=== PATIENT | male | born 1975 | race Caucasian/White ===

== ENCOUNTER 2025-08-01 00:01 | Emergency (ER) | payer OTHER ==
[~2025-08-01] VITALS: Ht 187.9 cm; Wt 68.0 kg
[2025-08-01] MEDS ORDERED: METHOCARBAMOL 500 MG TAB PO ONE (00:15)
[2025-08-01] MEDS ORDERED: PREDNISONE20 M1 PO (00:21)
[2025-08-01] MEDS ORDERED: METHOCARBAMOL500 M1 PO (00:21)
== END 2025-08-01 00:36 | disposition home or self-care (01) ==
LOC: ED 00:01
DX: M79.2 Neuralgia and neuritis, unspecified (principal); M79.601 Pain in right arm

== ENCOUNTER 2025-09-13 14:41 | Inpatient (IN) | payer OTHER ==
[~2025-09-13] VITALS: Ht 167.6 cm; Wt 67.1 kg
[2025-09-13] VITALS (20 sets, daily range): BP systolic 84–158; BP diastolic 35–115
[~2025-09-13 14:41] MED LIST: METHOCARBAMOL500 M1 PO; PREDNISONE20 M1 PO
[2025-09-13] MEDS ORDERED: DEXTROSE 50% 25 GM/50 ML SYR IV ONE (15:04)
[2025-09-13 15:11] LABS: BILIRUBIN Negative (Negative); BLOOD 2+ (Negative); CLARITY Clear (Clear); COLOR Yellow (Yellow); KETONE 2+ (Negative); LEUKO ESTERASE Negative (Negative); NITRITE Negative (Negative); PH 5.0 (4.5-8.0); SPECIFIC GRAVITY 1.025 (1.001-1.030); UROBILINOGEN 0.2 E.U./dl (0.0-1.0)
[2025-09-13 15:18] LABS: URINE AMPHETAMINES Positive (1000ng/ml); URINE BARBITURATES Negative (200ng/ml); URINE BENZODIAZEPINES Negative (200ng/ml); URINE CANNABINOIDS (THC) Negative (50ng/ml); URINE COCAINE Negative (300ng/ml); URINE METHADONE Negative (300ng/ml); URINE OPIATES Negative (300ng/ml); URINE PHENCYCLIDINE Negative (25ng/ml)
[2025-09-13 15:31] LABS: MEAN CELL VOLUME 103.5 fl (80.0-94.0); MEAN CORPUSCULAR HGB 28.9 pg (27.0-31.0); MEAN PLATELET VOLUME 10.3 fl (9.6-12.3); NUCLEATED RED BLOOD CELL 0.0 % (0.0-0.0); NUCLEATED RED BLOOD CELL 0.0 10*3/uL (0.0-0.0); PLATELET COUNT AUTOMATED 341 10*3/uL (130-400); RED CELL DISTRI WIDTH 12.6 % (0-14.5)
[2025-09-13 15:32] LABS: MANUAL DIFF REFLEX YES
[2025-09-13 15:40] LABS: ACT PARTIAL THROMBO TIME 47.5 SECONDS (20.0-32.1)
[2025-09-13 15:55] LABS: BACTERIA 1+
[2025-09-13 15:57] LABS: PLATELET SUFFICIENCY NORMAL (NORMAL)
[2025-09-13 16:00] LABS: VACUOLATION OF NEUTROPHILS SLIGHT
[2025-09-13 16:01] LABS: BUN 74 mg/dl (9-23); SGPT/ALT 24 U/L (5-49)
[2025-09-13] MEDS ORDERED: INSULIN REGULAR IN 0.9 % NACL 100 ML IV SCH ×2 (16:10→17:40)
[2025-09-13] MEDS ORDERED: SODIUM CHLORIDE 0.9% 1,000 ML IV ONE ×6 (16:10→19:20)
[2025-09-13] MEDS ORDERED: ACETAMINOPHEN 325 MG TAB PO PRN (17:15)
[2025-09-13] MEDS ORDERED: BISACODYL 10 MG SUPP R PRN (17:15)
[2025-09-13] MEDS ORDERED: Ondansetron Hydrochloride 4 MG/2 ML VIAL IV PRN (17:15)
[2025-09-13] MEDS ORDERED: ACETAMINOPHEN 650 MG SUPP R PRN (17:15)
[2025-09-13] MEDS ORDERED: BISACODYL 5 MG TAB PO PRN (17:15)
[2025-09-13] MEDS ORDERED: Acetaminophen/Hydrocodone 5 MG/325 MG TABLET PO PRN (17:15)
[2025-09-13] MEDS ORDERED: POTASSIUM CHLORIDE 20 MEQ TAB PO PRN (17:40)
[2025-09-13] MEDS ORDERED: POTASSIUM CHLORIDE 20 MEQ/100 ML BAG IV PRN (17:40)
[2025-09-13] MEDS ORDERED: Piperacillin Sodium/Tazobact 2.25 GM in SODIUM CHLORIDE 0.9% 50 ML IV SCH (18:00)
[2025-09-13 18:03] LABS: ABG BASE EXCESS -32.8 mmol/L (-2.0-3.0); ABG O2 SATURATION 99.8 % (94.0-98.0)
[2025-09-13 18:05] LABS: ARTERIAL BLOOD GAS PH 6.734 (7.350-7.450); ARTERIAL BLOOD GAS PO2 569.2 mmHg (83.0-108.0)
[2025-09-13] MEDS ORDERED: SODIUM BICARBONATE 50 MEQ/50 ML VIAL IV ONE ×3 (18:05→22:38)
[2025-09-13 18:42] LABS: BUN 66 mg/dl (9-23)
[2025-09-13] MEDS ORDERED: SODIUM POLYSTYRENE SULFONATE 15 GM/60 ML BOT R ONE (18:50)
[2025-09-13] MEDS ORDERED: Albuterol Sulf/Ipratropium 3 ML VIAL NEB ONE (18:50)
[2025-09-13] MEDS ORDERED: ETOMIDATE 20 MG/10 ML VIAL IV ONE (18:54)
[2025-09-13] MEDS ORDERED: ROCURONIUM BROMIDE 50 MG/5 ML SYRINGE IV ONE (18:54)
[2025-09-13] MEDS ORDERED: SODIUM POLYSTYRENE SULFONATE 15 GM/60 ML BOT NG ONE (19:05)
[2025-09-13] MEDS ORDERED: NOREPINEPHRINE BITARTRATE/D5W 250 ML IV SCH (20:25)
[2025-09-13] MEDS ORDERED: INSULIN REGULAR IN 0.9 % NACL 100 ML IV ONE (20:51)
[2025-09-13 21:16] LABS: ABG O2 SATURATION 98.4 % (94.0-98.0); ARTERIAL BLOOD GAS PO2 168.7 mmHg (83.0-108.0)
[2025-09-13 21:20] LABS: ABG BASE EXCESS -25.6 mmol/L (-2.0-3.0); ARTERIAL BLOOD GAS PH 6.833 (7.350-7.450)
[2025-09-13] MEDS ORDERED: HEPARIN SODIUM 5,000 UNIT/ML VIAL SC SCH (22:00)
[2025-09-13] MEDS ORDERED: SODIUM CHLORIDE 0.45% 1,000 ML IV SCH (22:25)
[2025-09-13] MEDS ORDERED: fentaNYL CITRATE 1,000 MCG in SODIUM CHLORIDE 0.9% 230 ML IV SCH (22:35)
[2025-09-13 23:06] LABS: BUN 67.0 mg/dl (9-23)
[2025-09-14] VITALS (52 sets, daily range): BP systolic 93–132; BP diastolic 44–66
[2025-09-14] MEDS ORDERED: fentaNYL CITRATE 1,000 MCG/20 ML VIAL IV ONE
[2025-09-14 02:57] LABS: BUN 63.0 mg/dl (9-23)
[2025-09-14] MEDS ORDERED: POTASSIUM CHLORIDE 20 MEQ TAB PO PRN (03:50)
[2025-09-14] MEDS ORDERED: POTASSIUM CHLORIDE 20 MEQ/100 ML BAG IV PRN (03:50)
[2025-09-14 06:33] LABS: BUN 59.0 mg/dl (9-23); LDL CHOLESTEROL 62.0 mg/dL (9-159); SGPT/ALT 24.0 U/L (5-49)
[2025-09-14 06:42] LABS: MEAN CORPUSCULAR HGB 28.6 pg (27.0-31.0); MEAN PLATELET VOLUME 9.4 fl (9.6-12.3); NUCLEATED RED BLOOD CELL 0.0 % (0.0-0.0); NUCLEATED RED BLOOD CELL 0.0 10*3/uL (0.0-0.0); RED CELL DISTRI WIDTH 12.3 % (0-14.5); VITAMIN D, 25-HYDROXY 19.8 ng/mL (30-100)
[2025-09-14 07:10] LABS: ACT PARTIAL THROMBO TIME 28.8 SECONDS (20.0-32.1)
[2025-09-14 07:28] LABS: MEAN CELL VOLUME 80.0 fl (80.0-94.0)
[2025-09-14 07:29] LABS: MANUAL DIFF REFLEX YES; PLATELET COUNT AUTOMATED 193 10*3/uL (130-400)
[2025-09-14 07:31] LABS: BASOPHILS 1 % (0-1)
[2025-09-14 07:32] LABS: PLATELET SUFFICIENCY NORMAL (NORMAL)
[2025-09-14 08:14] LABS: ABG BASE EXCESS -2.9 mmol/L (-2.0-3.0); ABG O2 SATURATION 98.1 % (94.0-98.0); ARTERIAL BLOOD GAS PH 7.369 (7.350-7.450); ARTERIAL BLOOD GAS PO2 110.4 mmHg (83.0-108.0)
[2025-09-14 10:39] LABS: BUN 56.0 mg/dl (9-23)
[2025-09-14] MEDS ORDERED: SODIUM PHOSPHATE 15 MMOL in SODIUM CHLORIDE 0.9% 250 ML IV ONE (10:40)
[2025-09-14] MEDS ORDERED: POTASSIUM CHLORIDE IN WATER 100 ML IV SCH ×2 (13:00→16:00)
[2025-09-14] MEDS ORDERED: DEXTROSE 5% SALINE 0.45% 1,000 ML IV SCH (14:20)
[2025-09-14 14:21] LABS: BUN 48.0 mg/dl (9-23)
[2025-09-14 18:43] LABS: BUN 41.0 mg/dl (9-23)
[2025-09-14] MEDS ORDERED: Insulin Glargine, Recombinan 1 UNIT/0.01 ML SC SCH (22:10)
[2025-09-14] MEDS ORDERED: DEXTROSE 50% 25 GM/50 ML VIAL IV PRN (22:15)
[2025-09-14] MEDS ORDERED: Lactated Ringer's Solution 1,000 ML IV SCH (22:20)
[2025-09-14 23:07] LABS: BUN 34.0 mg/dl (9-23)
[2025-09-15] VITALS: BP 104/46
[2025-09-15 04:00] VITALS: BP 101/47
[2025-09-15 05:02] LABS: BUN 29.0 mg/dl (9-23)
[2025-09-15] MEDS ORDERED: Insulin Glargine, Recombinan 1 UNIT/0.01 ML SC ONE (05:10)
[2025-09-15 06:06] LABS: BASO # 0.0 10*3/uL (0.0-0.1); BASO % 0.0 % (0.0-1.0); EOS # 0.0 10*3/uL (0.0-0.4); EOS % 0.1 % (1.0-4.0); MEAN CELL VOLUME 80.9 fl (80.0-94.0); MEAN CORPUSCULAR HGB 28.5 pg (27.0-31.0); MEAN PLATELET VOLUME 9.7 fl (9.6-12.3); MONO # 0.7 10*3/uL (0.1-1.0); MONO % 7.2 % (3.0-9.0); NEUT # 8.5 10*3/uL (2.3-7.9); NEUT % 85.4 % (47.0-73.0); NUCLEATED RED BLOOD CELL 0.0 % (0.0-0.0); NUCLEATED RED BLOOD CELL 0.0 10*3/uL (0.0-0.0); PLATELET COUNT AUTOMATED 149 10*3/uL (130-400); RED CELL DISTRI WIDTH 13.6 % (0-14.5)
[2025-09-15] MEDS ORDERED: INSULIN LISPRO 1 UNIT/0.01 ML SQ SCH ×2 (07:30)
[2025-09-15 08:00] VITALS: BP 104/56
[2025-09-15 11:12] LABS: BUN 25 mg/dl (9-23)
[2025-09-15 12:00] VITALS: BP 95/44
[2025-09-15] MEDS ORDERED: INSULIN REGULAR IN 0.9 % NACL 100 ML IV SCH (12:25)
[2025-09-15] MEDS ORDERED: SODIUM PHOSPHATE 15 MMOL in SODIUM CHLORIDE 0.9% 250 ML IV ONE (12:35)
[2025-09-15 15:45] LABS: BUN 20 mg/dl (9-23)
[2025-09-15 16:00] VITALS: BP 137/77
[2025-09-15 19:43] LABS: BUN 17 mg/dl (9-23)
[2025-09-15 20:00] VITALS: BP 132/69
[2025-09-15] MEDS ORDERED: DEXTROSE 50% 25 GM/50 ML VIAL IV PRN (23:05)
[2025-09-15] MEDS ORDERED: Insulin Glargine, Recombinan 1 UNIT/0.01 ML SC SCH (23:05)
[2025-09-16] VITALS: BP 129/67
[2025-09-16 04:00] VITALS: BP 124/73
[2025-09-16 05:24] LABS: BUN 12 mg/dl (9-23)
[2025-09-16 06:09] LABS: BASO # 0.0 10*3/uL (0.0-0.1); BASO % 0.1 % (0.0-1.0); EOS # 0.0 10*3/uL (0.0-0.4); EOS % 0.4 % (1.0-4.0); MEAN CELL VOLUME 81.7 fl (80.0-94.0); MEAN CORPUSCULAR HGB 28.3 pg (27.0-31.0); MEAN PLATELET VOLUME 9.6 fl (9.6-12.3); MONO # 0.5 10*3/uL (0.1-1.0); MONO % 6.8 % (3.0-9.0); NEUT # 5.4 10*3/uL (2.3-7.9); NEUT % 75.8 % (47.0-73.0); NUCLEATED RED BLOOD CELL 0.0 % (0.0-0.0); NUCLEATED RED BLOOD CELL 0.0 10*3/uL (0.0-0.0); PLATELET COUNT AUTOMATED 111 10*3/uL (130-400); RED CELL DISTRI WIDTH 13.7 % (0-14.5)
[2025-09-16] MEDS ORDERED: Technetium Tc 99M Mebrofenin 1 KIT KIT IV SCH (07:25)
[2025-09-16] MEDS ORDERED: SINCALIDE 5 MCG VIAL IV SCH (07:25)
[2025-09-16] MEDS ORDERED: INSULIN LISPRO 1 UNIT/0.01 ML SQ SCH (07:30)
[2025-09-16 08:00] VITALS: BP 121/67
[2025-09-16] MEDS ORDERED: DEXCOM G7 SENS1 EACH MC (08:59)
[2025-09-16] MEDS ORDERED: INSULIN AS100 UNIT/3 SQ (09:00)
[2025-09-16] MEDS ORDERED: NEURONTIN300 MG PO (09:00)
[2025-09-16] MEDS ORDERED: TOPIRAMATE50 M2 PO (09:01)
[2025-09-16] MEDS ORDERED: LANTUS100 UNIT/1 SQ (09:01)
[2025-09-16] MEDS ORDERED: BUPROPION HYDR150 M3 PO (09:02)
[2025-09-16 12:00] VITALS: BP 105/71
[2025-09-16 16:00] VITALS: BP 117/68
[2025-09-16 20:00] VITALS: BP 107/66
[2025-09-17] VITALS: BP 107/68
[2025-09-17 05:05] LABS: BUN 9 mg/dl (9-23)
[2025-09-17 06:45] LABS: BASO # 0.0 10*3/uL (0.0-0.1); BASO % 0.3 % (0.0-1.0); EOS # 0.0 10*3/uL (0.0-0.4); EOS % 0.5 % (1.0-4.0); MEAN CELL VOLUME 84.1 fl (80.0-94.0); MEAN CORPUSCULAR HGB 28.3 pg (27.0-31.0); MEAN PLATELET VOLUME 9.8 fl (9.6-12.3); MONO # 0.5 10*3/uL (0.1-1.0); MONO % 8.4 % (3.0-9.0); NEUT # 4.4 10*3/uL (2.3-7.9); NEUT % 68.9 % (47.0-73.0); NUCLEATED RED BLOOD CELL 0.0 % (0.0-0.0); NUCLEATED RED BLOOD CELL 0.0 10*3/uL (0.0-0.0); PLATELET COUNT AUTOMATED 123 10*3/uL (130-400); RED CELL DISTRI WIDTH 13.4 % (0-14.5)
[2025-09-17 08:00] VITALS: BP 125/85
[2025-09-17] MEDS ORDERED: POTASSIUM CHLORIDE 20 MEQ TAB PO ONE ×2 (08:05→16:55)
[2025-09-17] MEDS ORDERED: Insulin Glargine, Recombinan 1 UNIT/0.01 ML SC SCH (10:00)
[2025-09-17] MEDS ORDERED: SINCALIDE IV ONE (11:05)
[2025-09-17] MEDS ORDERED: SODIUM CHLORIDE 0.9% IV ONE (11:05)
[2025-09-17 12:00] VITALS: BP 132/67
[2025-09-17 16:00] VITALS: BP 114/69
[2025-09-17 20:00] VITALS: BP 121/76
[2025-09-18] VITALS: BP 125/70
[2025-09-18 06:33] LABS: BUN 11 mg/dl (9-23); SGPT/ALT 78 U/L (5-49)
[2025-09-18 08:00] VITALS: BP 128/64
[2025-09-18] MEDS ORDERED: TOPIRAMATE 25 MG TAB PO SCH (10:00)
[2025-09-18] MEDS ORDERED: GABAPENTIN 300 MG CAP PO SCH (10:00)
[2025-09-18 12:00] VITALS: BP 135/82
[2025-09-18] MEDS ORDERED: INSULIN AS100 UNIT/3 SQ (13:15)
[2025-09-18] MEDS ORDERED: KLOR-CON M2020 ME1 PO (13:15)
[2025-09-18] MEDS ORDERED: LANTUS100 UNIT/1 SQ (13:15)
== END 2025-09-18 15:35 | disposition home or self-care (01) | DRG 720 ==
LOC: ED 14:41 → EDHOLD 16:18 → ICCU 16:18 → 5E 16:18 → ICCU 16:28 → 5E 09-17 06:54
PROVIDERS: Emergency Medicine; Internal Medicine; Student in an Organized Health Care Education/Training Program; ADMIT Internal Medicine; ATTEND Internal Medicine
PROC: 0BH17EZ Insertion of Endotracheal Airway into Trachea, Via Natural or Artificial Opening (ICD-10-PCS; principal; 2025-09-13)
PROC: 5A1935Z Respiratory Ventilation, Less than 24 Consecutive Hours (ICD-10-PCS; 2025-09-13)
DX: A41.9 Sepsis, unspecified organism (principal); N17.0 Acute kidney failure with tubular necrosis; J96.02 Acute respiratory failure with hypercapnia; E11.10 Type 2 diabetes mellitus with ketoacidosis without coma; R65.21 Severe sepsis with septic shock; Z99.11 Dependence on respirator [ventilator] status; K81.0 Acute cholecystitis; G93.41 Metabolic encephalopathy; E87.5 Hyperkalemia; E44.0 Moderate protein-calorie malnutrition; E83.41 Hypermagnesemia; D53.9 Nutritional anemia, unspecified; E87.8 Other disorders of electrolyte and fluid balance, not elsewhere classified; F15.10 Other stimulant abuse, uncomplicated; Z79.899 Other long term (current) drug therapy; Z79.01 Long term (current) use of anticoagulants; Z79.2 Long term (current) use of antibiotics; Z88.8 Allergy status to other drugs, medicaments and biological substances; Z91.018 Allergy to other foods; Z68.23 Body mass index [BMI] 23.0-23.9, adult